=== PATIENT | male | born 1955 | race American Indian/Alaskan Native ===

== ENCOUNTER 2018-02-15 17:57 | Emergency (ER) | payer SELFPAY ==
[2018-02-15 18:04] VITALS: BP 122/82
== END 2018-02-15 20:13 | disposition left against medical advice (07) ==
LOC: ED 17:57
DX: T63.441A Toxic effect of venom of bees, accidental (unintentional), initial encounter (principal); R11.0 Nausea; M19.90 Unspecified osteoarthritis, unspecified site; Z91.030 Bee allergy status; Z88.8 Allergy status to other drugs, medicaments and biological substances; Y92.89 Other specified places as the place of occurrence of the external cause; Z53.21 Procedure and treatment not carried out due to patient leaving prior to being seen by health care provider